=== PATIENT | female | born 1990 | race African-American/Black ===

== ENCOUNTER 2021-07-26 07:50 | Outpatient (CLI) | payer BC, SELFPAY ==
[2021-07-26 08:52] LABS: Alanine Aminotransferase 18 U/L (4-35); Albumin Level 4.5 g/dL (3.5-5.1); Alkaline Phosphatase 67 U/L (38-126); Anion Gap 7 mmol/L (8-16); Aspartate Amino Transferase 20 U/L (14-36); Bilirubin,Total 0.5 mg/dL (0.2-1.3); Blood Urea Nitrogen 12 mg/dL (7-17); Calcium 9.4 mg/dL (8.4-10.2); Carbon Dioxide 26 mmol/L (22-30); Chloride 108 mmol/L (98-107); Cholesterol 174 mg/dL (0-200); Estimated Glomerular Filt Rate > 60; Glucose 102 mg/dL (65-110); HDL Direct 57 mg/dL; Potassium 4.3 mmol/L (3.4-5.0); Sodium 141 mmol/L (137-145); Triglycerides 65 mg/dL (<150)
[2021-07-26 09:04] LABS: LDL Cholesterol Direct 86 mg/dL
[2021-07-26 09:17] LABS: Hemoglobin A1C 5.5 % (<5.7)
[2021-07-26 09:51] LABS: Vitamin D 25 Hydroxy 47.7 ng/mL
== END 2021-07-26 07:51 | disposition home or self-care (01) ==
LOC: ANHLAB 07:53
PROVIDERS: PCP Internal Medicine; Visit Provider Nurse Practitioner
DX: Z13.6 Encounter for screening for cardiovascular disorders (principal); Z13.220 Encounter for screening for lipoid disorders; F32.A Depression, unspecified; Z13.21 Encounter for screening for nutritional disorder; Z13.1 Encounter for screening for diabetes mellitus
CPT/HCPCS: 36415; 80053; 80061; 82306; 83036; 84443